=== PATIENT | male | born 1970 | race Caucasian/White ===

== ENCOUNTER 2023-05-07 15:24 | Emergency (ER) | payer MEDICAID, SELFPAY ==
[2023-05-07] VITALS (9 sets, daily range): BP systolic 185–196; BP diastolic 47–150; PULSE 108–127; RESP 17–20; TEMP 36.7; O2SAT 96–100; BMI 27.1
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
--- NOTE | 2023-05-07 16:55 | PC.NURSE ---
Patient in CT
[2023-05-07 17:11] LABS: Basophils # 0.1 10^3/uL (0.0-0.1); Basophils % 0.8 %; Eosinophils # 0.1 10^3/uL (0.0-0.8); Eosinophils % 0.8 %; Hematocrit 41.1 % (37-53); Lymphocytes # 1.6 10^3/uL (0.8-4.8); Lymphocytes % 15.1 %; Mean Corpuscular HGB Conc 33.6 g/dL (30-55); Mean Corpuscular Hemoglobin 31.1 pg (27-33); Mean Corpuscular Volume 92.6 fl (82-101); Mean Platelet Volume 10.4 fL (7.4-10.4); Monocytes # 0.8 10^3/uL (0.2-0.9); Neutrophils # 7.79 10^3/uL (1.8-7.7); Neutrophils % 75.1 %; Nucleated Red Blood Cells % 0 %; Platelet Count 320 10^3/cmm (157-399); Red Blood Count 4.44 10^6/uL (3.85-5.65); Red Cell Distribution Width 12.5 % (12.1-15.1); White Blood Count 10.36 10^3/uL (3.29-11.43)
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
[2023-05-07] MEDS: metoclopramide 5 mg/mL SDV 2 mL 10 MG IVP (17:24)
[2023-05-07] MEDS: morphine 4 mg/mL SDV 1 mL IVP ×2 (17:27→19:04)
[2023-05-07 17:33] LABS: Alanine Aminotransferase 11 U/L (0-41); Albumin Level 4.1 g/dL (3.5-5.2); Alkaline Phosphatase 102 U/L (40-130); Aspartate Amino Transferase 14 U/L (0-40); Blood Urea Nitrogen 17 mg/dL (6-20); Calcium 9.7 mg/dL (8.5-10.5); Carbon Dioxide 26 mmol/L (22-29); Chloride 100 mmol/L (98-107); Globulin 3.3 g/dL (1.3-4.6); Glomerular Filtration Rate 45.4 mL/min (90-130); Glucose 121 mg/dL (65-115); Osmolality Calculated 289 mOsm/kg (285-295); Sodium 138 mmol/L (136-145); Total Bilirubin 0.5 mg/dL (0.15-1.2); Total Protein 7.4 g/dL (6.6-8.7)
[2023-05-07] MEDS: iohexol 350 mg/mL 500 mL Btl (per mL) IV (18:08)
[2023-05-07] MEDS: sodium chloride 0.9% 1,000 ML 999 ML IV (18:45)
--- NOTE | 2023-05-07 20:08 | PC.NURSE ---
vitals reviewed with provider, okay to discharge patient. patient advised to monitor blood pressure at home
--- NOTE | 2023-05-09 08:31 | DCPLANNER ---
Message sent to ortho for a follow up with DR Arthur.
== END 2023-05-07 20:10 | disposition home or self-care (01) ==
PROVIDERS: Emergency Provider Physician Assistant
DX: S42.392A Other fracture of shaft of left humerus, initial encounter for closed fracture (principal); V59.50XA Passenger in pick-up truck or van injured in collision with unspecified motor vehicles in traffic accident, initial encounter
CPT/HCPCS: 29105; 36415; 73080; 73201; 80053; 85025; 96361; 96374; 96375; 96376; 99285; J2270; J2765; J7030; Q9967

== ENCOUNTER 2023-05-17 06:00 | Outpatient (CLI) | payer MEDICAID, SELFPAY | END 2023-05-17 06:01 | LOC: SPT 05-18 08:48 | PROVIDERS: Visit Provider Physician Assistant | DX: Z46.89 Encounter for fitting and adjustment of other specified devices (principal); S42.392D Other fracture of shaft of left humerus, subsequent encounter for fracture with routine healing; X58.XXXD Exposure to other specified factors, subsequent encounter | CPT/HCPCS: 97760; 99203; L3980 ==

== ENCOUNTER → 2023-05-17 15:58 | Outpatient (BNVA) | payer MEDICAID, SELFPAY | PROVIDERS: Referring Provider Physician Assistant; Visit Provider Physician Assistant | DX: S42.352A Displaced comminuted fracture of shaft of humerus, left arm, initial encounter for closed fracture (principal); X58.XXXA Exposure to other specified factors, initial encounter | CPT/HCPCS: 73060 ==

== ENCOUNTER → 2023-05-26 13:52 | Outpatient (BNVA) | payer MEDICAID, SELFPAY | PROVIDERS: Visit Provider Orthopaedic Surgery | DX: S42.362D Displaced segmental fracture of shaft of humerus, left arm, subsequent encounter for fracture with routine healing (principal); V89.2XXD Person injured in unspecified motor-vehicle accident, traffic, subsequent encounter | CPT/HCPCS: 73060; 99213 ==